=== PATIENT | female | born 2000 | race Caucasian/White ===

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

== ENCOUNTER 2021-01-10 16:39 | Inpatient (IN) | payer OTHER ==
[~2021-01-10] VITALS: Ht 175.3 cm; Wt 95.3 kg
[~2021-01-10 16:39] MED LIST: CEPHALEXIN500 MG PO
[2021-01-10] MEDS ORDERED: PRENATAL VITAM1 EAC3 PO (17:36)
[2021-01-10 19:08] LABS: RED BLOOD COUNT 3.49 M/UL (4.00-5.10); WHITE BLOOD COUNT 11.1 K/UL (4.5-11.0)
[2021-01-12 05:37] LABS: HEMOGLOBIN 9.7 gm/dl (12.3-15.3)
[2021-01-12] MEDS ORDERED: IBUPROFEN600 MG PO (14:03)
[2021-01-12] MEDS ORDERED: FERROUS SULFAT325 M2 PO (14:03)
[2021-01-12] MEDS ORDERED: DOCUSATE SODIU100 MG PO (14:03)
== END 2021-01-13 16:02 | disposition home or self-care (01) | DRG 807 ==
LOC: GENOP 16:39 → OB 17:33
PROVIDERS: Obstetrics & Gynecology; ADMIT Obstetrics & Gynecology
PROC: 10E0XZZ Delivery of Products of Conception, External Approach (ICD-10-PCS; principal; 2021-01-11)
PROC: 4A1HXCZ Monitoring of Products of Conception, Cardiac Rate, External Approach (ICD-10-PCS; 2021-01-11)
PROC: 0HQ9XZZ Repair Perineum Skin, External Approach (ICD-10-PCS; 2021-01-11)
PROC: 10907ZC Drainage of Amniotic Fluid, Therapeutic from Products of Conception, Via Natural or Artificial Opening (ICD-10-PCS; 2021-01-11)
PROC: 00HU33Z Insertion of Infusion Device into Spinal Canal, Percutaneous Approach (ICD-10-PCS; 2021-01-11)
PROC: 3E0R3BZ Introduction of Anesthetic Agent into Spinal Canal, Percutaneous Approach (ICD-10-PCS; 2021-01-11)
DX: O99.334 Smoking (tobacco) complicating childbirth (principal); Z37.0 Single live birth; F17.210 Nicotine dependence, cigarettes, uncomplicated; Z3A.38 38 weeks gestation of pregnancy; O70.0 First degree perineal laceration during delivery; Z20.822 Contact with and (suspected) exposure to COVID-19; F19.10 Other psychoactive substance abuse, uncomplicated
CPT/HCPCS: 36415; 51702; 81001; 82800; 85014; 85018; 85025; 90715; J1650; J2210; J2590; J7120; U0002

== ENCOUNTER 2021-12-07 11:10 | Outpatient (CLI) | payer OTHER ==
[~2021-12-07 11:10] MED LIST changes: +DOCUSATE SODIU100 MG PO; +FERROUS SULFAT325 M2 PO; +IBUPROFEN600 MG PO; +PRENATAL VITAM1 EAC3 PO
== END 2021-12-07 12:25 | disposition home or self-care (01) ==
LOC: GENOP 11:10
DX: O48.0 Post-term pregnancy (principal); Z3A.40 40 weeks gestation of pregnancy
CPT/HCPCS: 59025

== ENCOUNTER 2021-12-12 05:42 | Inpatient (IN) | payer OTHER ==
[~2021-12-12] VITALS: Wt 84.0 kg
[2021-12-12 07:03] LABS: HEMOGLOBIN 10.1 gm/dl (12.3-15.3); RED BLOOD COUNT 3.62 M/UL (4.00-5.10); WHITE BLOOD COUNT 10.8 K/UL (4.5-11.0)
[2021-12-12] MEDS ORDERED: IBUPROFEN600 MG PO (12:36)
[2021-12-12] MEDS ORDERED: COLACE 100MG C100 MG PO (12:36)
[2021-12-13 05:11] LABS: HEMOGLOBIN 8.9 gm/dl (12.3-15.3)
== END 2021-12-13 15:40 | disposition home or self-care (01) | DRG 807 ==
LOC: OB 05:42
PROVIDERS: ADMIT Obstetrics & Gynecology
PROC: 10E0XZZ Delivery of Products of Conception, External Approach (ICD-10-PCS; principal; 2021-12-12)
PROC: 10907ZC Drainage of Amniotic Fluid, Therapeutic from Products of Conception, Via Natural or Artificial Opening (ICD-10-PCS; 2021-12-12)
PROC: 4A1HXCZ Monitoring of Products of Conception, Cardiac Rate, External Approach (ICD-10-PCS; 2021-12-12)
DX: O48.0 Post-term pregnancy (principal); Z37.0 Single live birth; Z20.822 Contact with and (suspected) exposure to COVID-19; Z28.310 Unvaccinated for COVID-19; Z3A.40 40 weeks gestation of pregnancy; O62.2 Other uterine inertia; O99.824 Streptococcus B carrier state complicating childbirth; O99.334 Smoking (tobacco) complicating childbirth; F17.210 Nicotine dependence, cigarettes, uncomplicated; Z91.048 Other nonmedicinal substance allergy status; Z80.6 Family history of leukemia; Z83.3 Family history of diabetes mellitus; Z82.49 Family history of ischemic heart disease and other diseases of the circulatory system
CPT/HCPCS: 36415; 81001; 82800; 85014; 85018; 85025; J2210; J2405; J2590; J3105